=== PATIENT | male | born 1970 | race Caucasian/White ===

== ENCOUNTER 2018-07-31 20:21 | Emergency (ER) | payer SELFPAY ==
[2018-07-31 20:22] VITALS: BP 139/98; PULSE 94; RESP 20; TEMP 36.8; O2SAT 98; BMI 25.1
[2018-07-31 21:15] LABS: Bacteria 0 SEEN /hpf (None Seen); Color, Urine Yellow (Yellow); Glucose, Dipstick Normal (Normal); Ketone-Dipstick Negative (Negative); Leukocyte Esterase-Dipstick 25 /ul (Negative); Nitrite-Dipstick Negative (Negative); Occult Blood-Urine Negative /ul (Negative); Protein-Dipstick 30 mg/dl (Negative); Red Blood Cells-Urine 0 SEEN /hpf (0-5); Specific Gravity, Urine 1.025 (1.002-1.030); Squamous Epithelial Cells - UA 0 SEEN /hpf (0-5); Urine Bilirubin Dipstick Negative (Negative); Urine Clarity Clear (Clear); Urine Urobilinogen 1 mg/dl (Normal)
[2018-07-31 21:22] LABS: White Blood Cells 0-5 SEEN /hpf (0-5)
[2018-07-31 21:23] LABS: Mucous, Urine 3+ /hpf (<or=2+)
[2018-07-31] MEDS: Naproxen 250 MG Tablet 500 MG PO (21:35)
[2018-07-31] MEDS: HYDROmorphone 1 MG/ML Syringe IV (21:35)
--- NOTE | 2018-07-31 22:10 | ED.DCSUM_ITS ---
- ER Visit Summary Date of Service: 07/31/18 Chief Complaint: Patient presents with acute right lower back pain that radiates anteriorly. History of Present Illness: The patient is a 47 M who presents with acute right low back pain that radiates anteriorly. There is no history of renal ureterolithiasis. He denies dysuria, frequency, urgency or hematuria. He denies nausea vomiting. He denies history of trauma. He reports exacerbation with movement. He denies radicular pain. He denies bowel or bladder dysfunction. He denies saddle paresthesia or anesthesia. He has no known history of back problems. Physical Examination: Patient appears uncomfortable. Vital signs noted and remarkable for blood pressure 139/98. Heart is regular without murmur, gallop or rub. S1 and S2 are normal. Lungs are clear to auscultation with good movement of air bilaterally. Abdomen is soft nontender with normal bowel sounds. There is no skin lesions or rash. There is no evidence of trauma. He reports improvement of his discomfort with palpation. Twisting and bending to left causes pain on the right. Flexion causes pain. Extension causes minimal discomfort. Gait observed and no foot drop. Patella and ankle reflex are intact. Normal sensation. No neurovascular findings. Test Results: A revealed leukoesterase 25 on macro otherwise negative and microscopic is negative. Emergency Department Course and Treatment: UA was obtained in the event this was an atypical presentation for ureteral lithiasis. He was medicated with Naprosyn and Carver since he has a ride with him. Treatment Plan: Rest, ice and oral analgesia Disposition: Discharge to home Impression: Acute right lower back pain/lumbar sacral strain without sciatica This note was generated with [employer] dictation software. It may contain incorrect words, spelling, and punctuation that were not noted in review of the chart prior to signing ED Disposition - Plan for ED Patient: Disposition: Home or Assisted Living Chief Complaint: Flank Pain Instructions: ED Sprain Strain Lumbar Prescriptions: Naproxen [Naprosyn] 500 mg PO BID #14 tab Referrals: Care Physician,No Primary [Primary Care Provider] - Michael Hsu MD [STAFF PHYSICIAN] - 1 Week if not improving
[2018-07-31 22:29] VITALS: BP 116/88; PULSE 82; RESP 16
== END 2018-07-31 22:29 | disposition home or self-care (01) ==
PROVIDERS: Emergency Provider Emergency Medicine
DX: S39.012A Strain of muscle, fascia and tendon of lower back, initial encounter (principal); X58.XXXA Exposure to other specified factors, initial encounter; Y93.9 Activity, unspecified; Z72.0 Tobacco use
CPT/HCPCS: 81001; 96374; 99284; A4216